=== PATIENT | female | born 1970 | race Caucasian/White ===

== ENCOUNTER 2018-02-07 19:00 | Emergency (ER) | payer MEDICAID ==
[~2018-02-07] VITALS: Ht 154.9 cm; Wt 99.3 kg
[2018-02-07 19:04] VITALS: BP 171/78
--- NOTE | 2018-02-07 19:12 | NUR ---
PT AMBULATES TO CHAIR A
--- NOTE | 2018-02-07 19:18 | NUR ---
Dr. Damon evaluating patient.
[2018-02-07] MEDS ORDERED: cloNIDine 0.1 MG TAB PO ONE (19:45)
[2018-02-07 21:25] VITALS: BP 145/86
--- NOTE | 2018-02-07 21:25 | NUR ---
Patient discharged with v/s stable. Written and verbal after care instructions given and explained. Patient alert, oriented and verbalized understanding of instructions. Ambulatory with steady gait. All questions addressed prior to discharge. ID band removed. Patient advised to follow up with PMD. Rx of Lisinopril given. Patient educated on indication of medication including possible reaction and side effects. Opportunity to ask questions provided and answered.
== END 2018-02-07 21:25 | disposition home or self-care (01) ==
LOC: MED 19:00
DX: I10 Essential (primary) hypertension (principal); M54.5 Low back pain; R51 Headache; E78.5 Hyperlipidemia, unspecified
CPT/HCPCS: 99283

== ENCOUNTER 2019-10-15 04:00 | Emergency (ER) | payer MEDICAID ==
[~2019-10-15] VITALS: Ht 157.5 cm; Wt 93.9 kg
[2019-10-15 04:10] VITALS: BP 157/86
--- NOTE | 2019-10-15 04:10 | NUR ---
TO BED # 04 AMBULATORY
--- NOTE | 2019-10-15 04:25 | NUR ---
EVALUATING WITH DR. ALMAZAN.
[2019-10-15] MEDS ORDERED: ONDANSETRON 4 MG/2 ML VIAL IM ONE (04:30)
[2019-10-15] MEDS ORDERED: MECLIZINE 25 MG TAB PO ONE (04:30)
--- NOTE | 2019-10-15 04:30 | NUR ---
SITTING UPRIGHT ON EDGE OF BED WITH SITTING IN CHAIR. SKIN NORMAL FOR ETHNICITY. BREATHING EVEN, UNLABORED. NO NAUSEA/VOMITING AT THIS TIME. DENIES PAIN OF ANY KIND. BOWEL SOUNDS ACTIVE + 4. POOR HISTORIAN. UNABLE TO EXPLAIN WHY SHE CAME INTO BE SEEN TONIGHT OTHER THAN DIZZINESS X 2 WEEKS.
--- NOTE | 2019-10-15 04:46 | NUR ---
MEDICATED WITH PO MECLIZINE AND IM ZOFRAN. WILL REASSESS.
--- NOTE | 2019-10-15 05:15 | NUR ---
PT REPORTS SOME RELIEF OF DIZZINESS/NAUSEA.
--- NOTE | 2019-10-15 05:25 | NUR ---
RADIOLOGY CALLED FOR CT.
--- NOTE | 2019-10-15 05:37 | NUR ---
TAKEN TO CT VIA WC.
--- NOTE | 2019-10-15 06:55 | NUR ---
Patient discharged with v/s stable. Written and verbal after care instructions given and explained. Patient alert, oriented and verbalized understanding of instructions. Ambulatory with steady gait. All questions addressed prior to discharge. ID band removed. Patient advised to follow up with PMD. Rx of MECLIZINE WAS given. Patient educated on indication of medication including possible reaction and side effects. Opportunity to ask questions provided and answered. PT STATED SHE DID NOT HAVE DIZZINESS OR PAIN PRIOR TO D/C.
[2019-10-15 06:59] VITALS: BP 145/82
== END 2019-10-15 06:55 | disposition home or self-care (01) ==
LOC: MED 04:00
DX: H81.10 Benign paroxysmal vertigo, unspecified ear (principal); I10 Essential (primary) hypertension
CPT/HCPCS: 70450; 96372; 99284; J2405; J8597